=== PATIENT | male | born 1995 | race Caucasian/White ===

== ENCOUNTER 2017-03-15 20:36 | Emergency (ER) | payer BC ==
[2017-03-15 20:41] VITALS: BP 142/68
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
[2017-03-15] MEDS ORDERED: HYDROcodone/ACETAMIN 5-325 MG* 1 TAB PO ONE ×2 (22:37→22:57)
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
== END 2017-03-15 23:11 | disposition home or self-care (01) ==
LOC: ED 20:36
DX: S43.101A Unspecified dislocation of right acromioclavicular joint, initial encounter (principal); V19.9XXA Pedal cyclist (driver) (passenger) injured in unspecified traffic accident, initial encounter; Y93.55 Activity, bike riding; Y92.9 Unspecified place or not applicable; Y99.9 Unspecified external cause status
CPT/HCPCS: 99282

== ENCOUNTER 2017-04-09 07:37 | Day surgery (SDC) | payer BC ==
[~2017-04-09 07:37] MED LIST: Buffered Lidocaine 0.9% SYRIN* 5 ML/SYR SYRINGE INTRADERM ONE; Buffered Lidocaine 0.9% SYRIN* 5 ML/SYR SYRINGE ONE; Dexamethasone IV* 4 MG/ML 1 ML (4 MG) IV SLOW PU ONE; Dexamethasone IV* 4 MG/ML 1 ML (4 MG) ONE; Famotidine IV* 10 MG/ML 2 ML (20 mg) IV ONE; Famotidine IV* 10 MG/ML 2 ML (20 mg) ONE; ceFAZolin 2 GM PREMIX(*) 2 GM/50 ML BAG IVPB ONE
[2017-04-09] MEDS ORDERED: Bupivacaine 0.5% SDV PF* 30 ML VIAL ONE (08:03)
[2017-04-09] MEDS ORDERED: Propofol* 10 MG/ML 20 ML BTL IV PUSH ONE (08:57)
[2017-04-09] MEDS ORDERED: Lidocaine 2% PF * 5 ML VIAL ONE (08:57)
[2017-04-09] MEDS ORDERED: fentaNYL* 50 MCG/ML 2 ML VIAL (100 MCG VIAL) ONE ×3 (08:59→10:34)
[2017-04-09] MEDS ORDERED: Ondansetron INJ* 2 MG/ML VIAL IV PRN (09:37)
[2017-04-09] MEDS ORDERED: Ketorolac INJ* 30 MG/ML 1 ML VIAL ONE (10:04)
[2017-04-09] MEDS: fentaNYL* 50 MCG/ML 2 ML VIAL (100 MCG VIAL) IV PRN ×4 (10:27→11:04)
[2017-04-09] MEDS ORDERED: oxyCODONE TAB* 5 MG TAB ONE (10:52)
[2017-04-09 12:04] VITALS: BP 130/75
--- NOTE | 2017-04-10 03:51 | OP ---
DATE OF OPERATION: 04/09/17 - [facility] DATE OF : 89 SURGEON: Prashant Au MD. BREAD DISTRIBUTOR: Angela Marquez PA-C. ANESTHESIOLOGIST: Tomás Wolf DO ANESTHESIA: General PRE-OP DIAGNOSIS: Nonunion right distal fibula fracture. POST-OP DIAGNOSIS: Nonunion right distal fibula fracture. PRIMARY PROCEDURE: Open reduction and internal fixation right fibula fracture. DESCRIPTION OF PROCEDURE: Patient was taken to the operating room, lateral positioning used. We opened up longitudinally over the distal fibula. We were able to open the nonunion side with a 15 blade and a small freer elevator. We used a 2.4 mm power bennett to take down the fibrous tissue and then the bennett to leave some good cancellous bone within the nonunion site. Compression plating was performed with posterior to anterior 3.5 cortical screws through a 7-hole one-third tubular plate. We used bone clamps to compress the fracture during the screw fixation. We then irrigated thoroughly closing with Vicryl and nylon suture and a compression dressing and plaster splint. [id number]/[facility] #: [id number] MTDD
--- NOTE | 2017-04-11 08:18 | RAD ---
INDICATION: Right ankle fixation. COMPARISON: Comparison is made with a prior x-ray study of the right ankle from February 22, 2017. TECHNIQUE: 2.1 seconds of intermittent fluoroscopic guidance were provided and a single spot film of the right ankle was obtained in the operating room. FINDINGS: There is been placement of a metallic surgical plate present along the posterior aspect of the distal fibula spanning the fracture fragments transfixed with multiple screws. IMPRESSION: INTRAOPERATIVE CONTROL FILMS. CPT II Codes: 6045F
== END 2017-04-09 12:01 | disposition home or self-care (01) ==
LOC: OR 07:37
PROVIDERS: ATTEND Orthopaedic Surgery
DX: S82.61XK Displaced fracture of lateral malleolus of right fibula, subsequent encounter for closed fracture with nonunion (principal); Q23.1 Congenital insufficiency of aortic valve; X58.XXXD Exposure to other specified factors, subsequent encounter; Y92.9 Unspecified place or not applicable
CPT/HCPCS: A9270-GY; C1713; C1776; J0690; J1100; J1885; J2704; J3010

== ENCOUNTER 2017-04-12 12:41 | Emergency (ER) | payer BC ==
[2017-04-12 13:18] LABS: Hematocrit 41 % (42-52); Hemoglobin 14.3 g/dl (14.0-18.0); Mean Corpuscular HGB Conc 35 g/dl (31-36); Mean Corpuscular Hemoglobin 32 pg (27-31); Mean Corpuscular Volume 91 fL (80-94); Mean Platelet Volume 11 um3 (7.4-10.4); Red Blood Count 4.51 10^6/ul (4.0-5.4); Red Cell Distribution Width 13 % (10.5-15); White Blood Count 14.7 10^3/ul (3.5-10.8)
[2017-04-12] MEDS: NS 0.9% 1000 ML* 1,000 ML IV ONE ×2 (13:18→13:33)
[2017-04-12 13:20] LABS: Add Diff/Slide Review? Slide Review Added; Comments Flag Yes
[2017-04-12] MEDS ORDERED: Ketorolac INJ* 30 MG/ML 1 ML VIAL IV PUSH ONE (13:22)
[2017-04-12] MEDS ORDERED: Ondansetron INJ* 2 MG/ML VIAL IV ONE (13:22)
--- NOTE | 2017-04-12 13:30 | ED ---
HPI Febrile Illness - HPI Summary HPI Summary: 21M presents with fever for a day. He had right ankle surgery on Sunday by Dr oliver for nonhealing ankle fracture. He has a splint placed. He admits to sore throat, nausea and vomiting. He denies any increase in pain in his extremity. He denies any cough. He denies any chest pain, SOB, abdominal pain, diarrhea or constipation. He denies anyone else being sick. He denies feeling any warmth in his cast. His pain is being well managed with oxy. - History of Current Complaint Chief Complaint: EDFever Time Seen by Provider: 04/12/17 12:54 Pain Intensity: 10 - Allergy/Home Medications Allergies/Adverse Reactions: Allergies Allergy/AdvReac Type Severity Reaction Status Date / Time Bee Venom Allergy swelling Verified 04/09/17 07:45 of face PMH/Surg Hx/FS Hx/Imm Hx Endocrine/Hematology History: Denies: Hx Diabetes, Hx Thyroid Disease Cardiovascular History: Reports: Other Cardiovascular Problems/Disorders - bicuspid valve disorder Denies: Hx Hypertension, Hx Pacemaker/ICD Respiratory History: Reports: Hx Asthma - As a child outgrew Denies: Hx Chronic Obstructive Pulmonary Disease (COPD) GI History: Denies: Hx Ulcer History: Denies: Hx Dialysis, Hx Renal Disease Sensory History: Denies: Hx Contacts or Glasses, Hx Hearing Aid Opthamlomology History: Denies: Hx Contacts or Glasses Psychiatric History: Reports: Hx Anxiety - 2 years ago - resolved Denies: Hx Panic Disorder - Cancer History Hx Chemotherapy: No - Surgical History Surgery Procedure, Year, and Place: none - Immunization History Date of Tetanus Vaccine: Unknown Infectious Disease History: No Infectious Disease History: Denies: Hx Hepatitis, Hx Human Immunodeficiency Virus (HIV), Traveled Outside the [place] in Last 30 Days - Family History Known Family History: Positive: None - Social History Alcohol Use: Occasionally Substance Use Type: Reports: None Smoking Status (MU): Never Smoked Tobacco Review of Systems Positive: Fever Positive: Sore Throat Negative: Chest Pain Negative: Shortness Of Breath, Cough Positive: Vomiting, Nausea. Negative: Abdominal Pain, Diarrhea All Other Systems Reviewed And Are Negative: Yes Physical Exam Triage Information Reviewed: Yes Vital Signs On Initial Exam: Initial Vitals Temp Pulse Resp BP Pulse Ox 100.7 F 101 18 138/92 100 04/12/17 12:42 04/12/17 12:42 04/12/17 12:42 04/12/17 12:42 04/12/17 12:42 Vital Signs Reviewed: Yes Appearance: Positive: Ill-Appearing Skin: Positive: Warm, Dry, Other - surgical site clean dry and intact, no dehisence or erythema on right lateral ankle Head/Face: Positive: Normal Head/Face Inspection Eyes: Positive: Normal, EOMI, ZURDO, Conjunctiva Clear ENT: Positive: Pharyngeal erythema, TMs normal, Tonsillar swelling. Negative: Tonsillar exudate Neck: Positive: Supple, Nontender, No Lymphadenopathy Respiratory/Lung Sounds: Positive: Clear to Auscultation, Breath Sounds Present Cardiovascular: Positive: Normal, RRR Abdomen Description: Positive: Nontender, Soft Bowel Sounds: Positive: Present - Otto Coma Scale Coma Scale Total: 15 Procedures - Splinting Location: right ankle Hand-Made Type: fiberglass Splint: posterior walking Pre-Proc Neuro Vasc Exam: normal Post-Proc Neuro Vasc Exam: normal Diagnostics - Vital Signs Vital Signs Temp Pulse Resp BP Pulse Ox 04/12/17 13:20 87 99 04/12/17 13:18 101.1 F 88 16 134/72 98 04/12/17 12:42 100.7 F 101 18 138/92 100 - Laboratory Lab Results: Lab Results 04/12/17 Range/Units 13:05 WBC 14.7 H (3.5-10.8) 10^3/ul RBC 4.51 (4.0-5.4) 10^6/ul Hgb 14.3 (14.0-18.0) g/dl Hct 41 L (42-52) % MCV 91 (80-94) fL MCH 32 H (27-31) pg MCHC 35 (31-36) g/dl RDW 13 (10.5-15) % Plt Count 98 L (150-450) 10^3/ul MPV 11 H (7.4-10.4) um3 Neut % (Auto) 89.5 H (38-83) % Lymph % (Auto) 4.0 L (25-47) % [place] % (Auto) 6.1 (1-9) % Eos % (Auto) 0.1 (0-6) % Baso % (Auto) 0.3 (0-2) % Absolute Neuts (auto) 13.1 H (1.5-7.7) 10^3/ul Absolute Lymphs (auto) 0.6 L (1.0-4.8) 10^3/ul Absolute Monos (auto) 0.9 H (0-0.8) 10^3/ul Absolute Eos (auto) 0 (0-0.6) 10^3/ul Absolute Basos (auto) 0 (0-0.2) 10^3/ul Absolute Nucleated RBC 0 10^3/ul Nucleated RBC % 0 Result Diagrams: 04/12/17 13:05 04/12/17 13:05 Lab Statement: Any lab studies that have been ordered have been reviewed, and results considered in the medical decision making process. Re-Evaluation - Re-Evaluation First Eval Re-Evaluation Time: 14:12 Change: Improved Comment: feeling better with toradol Course/Dx - Course Course Of Treatment: 21M presents with fever for a day. He had ankle surgery on Sunday by Dr oliver for nonhealing ankle fracture. He has a splint placed. He admits to sore throat, nausea and vomiting. He denies any increase in pain in his extremity. He denies any cough. He denies any chest pain, SOB, abdominal pain, diarrhea or constipation. He denies anyone else being sick. labs 14 wbc with left shift. neg mono. Centor criteria is 4 so even though strept neg will treat as strept with PCN. chest xray and urine normal. with dr guillen permission removed splint and checked wound which was healing well without evidence of infection and placed in new splint. dr guillen said to follow up tomorrow. patient understands and agrees with plan - Febrile Illness Differential Diagnoses: Bacteremia, Cellulitis, Pneumonia, Other: - strept, URI , UTI - Diagnoses Provider Diagnoses: Fever, Streptococcal sore throat - Provider Notifications Discussed Care Of Patient With: dr guillen Time Discussed With Above Provider: 14:21 - split and place in posterior u splint and follow up tomorrow Discharge - Discharge Plan Condition: Good Disposition: HOME Prescriptions: Dexamethasone TAB* [Decadron TAB*] 4 mg PO DAILY #4 tab Magic Mouth Was-CRISELDA/MAAL/LIDO* 5 ml SWISH SPIT QID #100 ml Penicillin VK TAB* [Penicillin VK 250 mg Tab*] 500 mg PO BID #38 tab Patient Education Materials: Strep Throat (ED) Referrals: Aldair De Guzman MD [Primary Care Provider] - Janie Guillen MD [Medical Doctor] - Additional Instructions: You are being treated for stept: antibiotic two tablets two times a day for 10 days, first dose in ED Take steroid once a day for 5 days, first dose given in ED Magic mouthwash 5ml can use 4x a day for pain Take Tylenol or ibuprofen for pain/fever Follow up with ortho tomorrow Return to ED if develop any new or worsening symptoms
[2017-04-12 13:32] LABS: ALT 19 U/L (7-52); AST 17 U/L (13-39); Albumin 4.3 g/dL (3.2-5.2); Alkaline Phosphatase 54 U/L (34-104); Anion Gap 7 mmol/L (2-11); BUN/Creatinine Ratio 9.4 (8-20); Blood Urea Nitrogen 10 mg/dL (6-24); CO2 Carbon Dioxide 25 mmol/L (22-32); Calcium 9.5 mg/dL (8.6-10.3); Chloride 97 mmol/L (101-111); EGFR African American 114.5 (>60); EGFR Non-African American 89.1 (>60); Globulin 2.8 g/dL (2-4); Glucose 113 mg/dL (70-100); Lipase < 10 U/L (11.0-82.0); Potassium 3.5 mmol/L (3.5-5.0); Sodium 129 mmol/L (133-145); Total Protein 7.1 g/dL (6.4-8.9)
[2017-04-12 14:04] LABS: Manual Entry Verification ABI0007; Mono Internal Control QC Line Present
--- NOTE | 2017-04-12 14:34 | RAD ---
INDICATION: Chills, fever, vomiting. COMPARISON: No relevant prior exams available on the [facility] [place]. TECHNIQUE: Dual energy PA and routine lateral views of the chest were obtained. Additional sitting AP chest obtained. REPORT: Clear lungs and pleural spaces. Negative for pneumothorax. The heart, pulmonary vasculature, and mediastinal contours are unremarkable. Unremarkable osseous structures and soft tissue contours. IMPRESSION: No evidence for pneumonia. Negative exam.
[2017-04-12] MEDS ORDERED: Dexamethasone TAB* 4 MG PO ONE (15:32)
[2017-04-12] MEDS ORDERED: Acetaminophen TAB* 325 MG PO ONE (16:20)
[2017-04-12 16:40] LABS: Urine Bilirubin Negative (Negative); Urine Glucose Negative (Negative); Urine Nitrite Negative (Negative)
[2017-04-12] MEDS ORDERED: Penicillin VK TAB* 250 MG PO ONE (16:45)
[2017-04-12 16:59] VITALS: BP 135/67
== END 2017-04-12 17:15 | disposition home or self-care (01) ==
LOC: ED 12:41
DX: J02.0 Streptococcal pharyngitis (principal); R50.9 Fever, unspecified; J02.9 Acute pharyngitis, unspecified; R11.2 Nausea with vomiting, unspecified
CPT/HCPCS: 36415; 71020; 80053; 81003; 83605; 83690; 85025; 86141; 86308; 87040; 87070; 87651; 99283; A9270-GY; J1885; J2405

== ENCOUNTER 2017-04-21 17:11 | Emergency (ER) | payer BC ==
[2017-04-21 17:57] VITALS: BP 135/60
[2017-04-21] MEDS ORDERED: predniSONE TAB* 20 MG PO ONE (19:19)
[2017-04-21] MEDS ORDERED: Ketorolac INJ* 60 MG/2 ML VIAL IM ONE (19:19)
--- NOTE | 2017-05-10 15:18 | ED ---
Barbara Quesada Edward, scribed for Alex Hayes MD on 04/21/17 at 1841 . HPI Febrile Illness - HPI Summary HPI Summary: 21 y/o male presents to ED c/o sore throat that reappeared last night. Denies a cough, body aches, and rhinorrhea. The sore throat first appeared 2 days after a R ankle surgery that was performed 2 weeks ago. 2 days after his surgery the pt also developed a fever and N/V. The fever was 101.3 today. SHx R ankle surgery. The patient states that the sore throat is worse this time around rated at a 7/10 at triage. Associated sx: boil on hip. Pt states the ankle has healed well s/p surgery. - History of Current Complaint Chief Complaint: EDFever Time Seen by Provider: 04/21/17 18:38 Hx Obtained From: Patient, Family/Telephone Operator Chief - Mom and dad Onset/Duration: Started Weeks Ago - 2 weeks ago, Resolved - Reappeared 2 days ago Timing: Constant, Lasting Days - Reappeared 2 days ago Current Severity: Moderate Pain Intensity: 7 Associated Signs and Symptoms: Nausea, Sore Throat, Vomiting, Other: - Fever - Allergy/Home Medications Allergies/Adverse Reactions: Allergies Allergy/AdvReac Type Severity Reaction Status Date / Time Bee Venom Allergy swelling Verified 04/09/17 07:45 of face PMH/Surg Hx/FS Hx/Imm Hx Previously Healthy: No Endocrine/Hematology History: Denies: Hx Diabetes, Hx Thyroid Disease Cardiovascular History: Reports: Other Cardiovascular Problems/Disorders - bicuspid valve disorder Denies: Hx Hypertension, Hx Pacemaker/ICD Respiratory History: Reports: Hx Asthma - As a child outgrew Denies: Hx Chronic Obstructive Pulmonary Disease (COPD) GI History: Denies: Hx Ulcer History: Denies: Hx Dialysis, Hx Renal Disease Sensory History: Denies: Hx Contacts or Glasses, Hx Hearing Aid Opthamlomology History: Denies: Hx Contacts or Glasses Psychiatric History: Reports: Hx Anxiety - 2 years ago - resolved Denies: Hx Panic Disorder - Cancer History Hx Chemotherapy: No - Surgical History Surgery Procedure, Year, and Place: none - Immunization History Date of Tetanus Vaccine: Unknown Infectious Disease History: Denies: Hx Hepatitis, Hx Human Immunodeficiency Virus (HIV), Traveled Outside the [place] in Last 30 Days - Family History Known Family History: Negative: Cardiac Disease, Hypertension, Diabetes - Social History Alcohol Use: Occasionally Substance Use Type: Reports: None Smoking Status (MU): Never Smoked Tobacco Review of Systems Positive: Fever. Negative: Chills Negative: Erythema Positive: Sore Throat. Negative: Nasal Discharge Negative: Chest Pain Negative: Shortness Of Breath, Cough Positive: Vomiting, Nausea. Negative: Abdominal Pain Negative: dysuria, hematuria Negative: Arthralgia - Denies body aches , Myalgia, Edema Negative: Rash Neurological: Other - No dizziness All Other Systems Reviewed And Are Negative: Yes Physical Exam - Summary Physical Exam Summary: Constitutional: Well-developed, Well-nourished, Alert. (-) Distressed Skin: Warm, Dry HENT: Normocephalic; Atraumatic. R tonsillar exudate. (-) peritonsillar abscess. Eyes: Conjunctiva normal Neck: Musculoskeletal ROM normal neck. (-) JVD, (-) Stridor, (-) Tracheal deviation Cardio: Rhythm regular, rate normal, Heart sounds normal; Intact distal pulses; The pedal pulses are 2+ and symmetric. Radial pulses are 2+ and symmetric. (-) Murmur Pulmonary/Chest wall: Effort normal. (-) Respiratory distress, (-) Wheezes, (-) Rales Abd: Soft, (-) Tenderness, (-) Distension, (-) Guarding, (-) Rebound Musculoskeletal: (-) Edema Lymph: (-) Cervical adenopathy Neuro: Alert, Oriented x3 Psych: Mood and affect Normal Triage Information Reviewed: Yes Vital Signs On Initial Exam: Initial Vitals Temp Pulse Resp BP Pulse Ox 98.4 F 95 18 135/60 99 04/21/17 17:52 04/21/17 17:52 04/21/17 17:52 04/21/17 17:52 04/21/17 17:52 Vital Signs Reviewed: Yes Diagnostics - Vital Signs Vital Signs Temp Pulse Resp BP Pulse Ox 04/21/17 17:52 98.4 F 95 18 135/60 99 - Laboratory Lab Results: Lab Results 04/21/17 Range/Units 19:29 Group A Strep Rapid Negative (Negative) Lab Statement: Any lab studies that have been ordered have been reviewed, and results considered in the medical decision making process. Re-Evaluation - Re-Evaluation 1 Re-Evaluation Time: 19:49 Comment: Discussed plan of care with pt Course/Dx - Course Assessment/Plan: 21 y/o male presents to ED c/o sore throat that reappeared last night. The sore throat first appeared 2 days after a R ankle surgery that was performed 2 weeks ago. 2 days after his surgery the pt developed a fever and N/V. Denies a cough, body aches, and rhinorrhea. The fever was 101.3 today. SHx R ankle surgery. The patient states that the sore throat is worse this time around rated at a 7/10 at triage. Associated sx: boil on hip. Pt states the ankle has healed well s/p surgery. Rapid Strep Test - negative. Pt will be d/c home with f[facility] at [facility]. - Diagnoses Provider Diagnoses: Pharyngitis Discharge - Discharge Plan Condition: Stable Disposition: HOME Prescriptions: Methylprednisolone [Medrol Dosepak 4 MG*] 1 mg PO .SEE GEM INSTRUCTION #1 packet Patient Education Materials: Pharyngitis (ED) Additional Instructions: Follow up at [facility] in 2-3 days please. The documentation as recorded by the Barbara smith Edward accurately reflects the service I personally performed and the decisions made by , Alex Hayes MD.
== END 2017-04-21 20:11 | disposition home or self-care (01) ==
LOC: ED 17:11
DX: J02.9 Acute pharyngitis, unspecified (principal); R50.9 Fever, unspecified; R11.2 Nausea with vomiting, unspecified
CPT/HCPCS: 87651; 96372; 99282; J1885; J7512